=== PATIENT | female | born 1985 | race Caucasian/White ===

== ENCOUNTER → 2019-03-20 09:10 | Outpatient (CLI) | payer OTHER, SELFPAY ==
[2019-03-20 09:56] LABS: Add Manual Diff / Slide Review NO; Basophils Absolute Auto 100 /uL (0-100); Basophils Percent Auto 1.4 % (0-2); Eosinophils Absolute Auto 100 /uL (0-450); Eosinophils Percent Auto 1.5 % (2-4); Hematocrit 41.5 % (36-46); Hemoglobin 14.2 g/dL (12.0-16.0); Lymphocytes Absolute Auto 1200 /uL (1100-4500); Lymphocytes Percent Auto 27.1 % (25-40); Mean Corpuscular HGB Conc 34.2 % (30-36); Mean Corpuscular Hemoglobin 29.4 PG (26-34); Mean Corpuscular Volume 86.1 fL (80-100); Monocytes Absolute Auto 500 /uL (0-900); Monocytes Percent Auto 11.2 % (3-14); Neutrophils Absolute Auto 2700 /uL (1500-7000); Neutrophils Percent Auto 58.8 % (50-75); Platelet Count 273 X10^3/uL (150-400); Red Blood Cell Count 4.83 X10^6/uL (4.0-5.2); Red Cell Distribution Width 12.4 % (11.6-14.8); White Blood Cell Count 4.5 X10^3/uL (4.5-11.0)
[2019-03-20 10:27] LABS: Alanine Aminotransferase 33 IU/L (9-52); Albumin 4.3 g/dL (3.5-5.0); Albumin Globulin Ratio 1.3 (1.0-2.8); Alkaline Phosphatase 56 U/L (38-126); Aspartate Aminotransferase 36 IU/L (14-36); BUN Creatinine Ratio 11.7 (6-22); Bilirubin Total 0.5 mg/dL (0.2-1.3); Blood Urea Nitrogen 7 mg/dL (7-17); Calcium 9.5 mg/dL (8.4-10.2); Carbon Dioxide 29 mmol/L (22-32); Chloride 102 mmol/L (98-107); Estimated Glomerular Filt Rate > 60.0 mL/min (>60); Globulin 3.4 g/dL (1.7-4.1); Glucose 87 mg/dL (70-100); HEMOLYSIS < 15 (0-50); Potassium 4.2 mmol/L (3.4-5.1); Sodium 139 mmol/L (137-145); Total Protein 7.7 g/dL (6.3-8.2)
== END ==
PROVIDERS: PCP Family Medicine; Visit Provider Family Medicine
DX: K52.9 Noninfective gastroenteritis and colitis, unspecified (principal)
CPT/HCPCS: 36415; 80053; 85025

== ENCOUNTER → 2020-07-06 09:22 | Outpatient (CLI) | payer OTHER, SELFPAY ==
--- NOTE | 2020-07-06 09:24 | DI.RAD.S_ITS ---
PROCEDURE: XR SACRUM COCCYX MIN 2V INDICATIONS: injury TECHNIQUE: 3 views of the sacrum and coccyx acquired. COMPARISON: None. FINDINGS: Bones: No fractures or dislocations. No suspicious bony lesions. Soft tissues: Visualized bowel gas pattern is normal. No suspicious soft tissue densities. IMPRESSION: No trauma found. Dictated by: Issa Alvarado M.D. on 07/06/2020 at 11:05 Approved by: Issa Alvarado M.D. on 07/06/2020 at 11:05
== END ==
PROVIDERS: PCP Family Medicine; Referring Provider Nurse Practitioner Family; Visit Provider Nurse Practitioner Family
DX: T14.8XXA Other injury of unspecified body region, initial encounter (principal); M53.3 Sacrococcygeal disorders, not elsewhere classified; X58.XXXA Exposure to other specified factors, initial encounter
CPT/HCPCS: 72220

== ENCOUNTER 2020-08-23 14:15 | Outpatient (RCR) | payer OTHER, SELFPAY ==
--- NOTE | 2020-08-02 16:00 | PT.OTN ---
Current Diagnoses Sacrococcygeal disorders, not elsewhere classified (08/02/20) Other injury of unspecified body region, initial encounter (08/02/20) Physical Therapy Treatment Note PT-OP-A Visit Information Start: 08/02/20 07:29 Freq: Status: Active Protocol: Document 08/02/20 14:15 AMB (Rec: 08/03/20 07:59 AMB [email or web address]) Out-Patient Physical Therapy Visit Information Visit Information Visit Type Initial Evaluation Visit Start Time 14:15 Visit Stop Time 15:00 Total Visit Minutes 45 Visit Number 1 PT-OP-B Current Condition Start: 08/02/20 07:29 Freq: Status: Active Protocol: Document 08/02/20 14:15 AMB (Rec: 08/02/20 14:57 AMB [id number]) Current Condition History of Current Condition Onset Date June 14 Current Complaints Left SI pain History of Current Condition Left buttock pain s/p fall, down on stair Driving is the worst, working out (like sit ups), touched on the painful area, sitting (like to watch a movie). Had a large bruise, and still feels like the bruise is tender. Mostly concerned about that. Prior Functional Status Baseline Function- ADL's Independent Baseline Function- Mobility Independent PT-OP-C Subjective Start: 08/02/20 07:29 Freq: Status: Active Protocol: Document 08/02/20 14:15 AMB (Rec: 08/03/20 07:59 AMB [email or web address]) Patient Questionnaires Oswestry Low Back Index Oswestry Score 16 Oswestry Impairment 1 to 19% Impaired (Score 1-19) OP-PT Pain Assessment Comments Pain Comments 4/10 pain over left buttock PT-OP-F Manual Assessment Start: 08/02/20 07:29 Freq: Status: Active Protocol: Document 08/02/20 14:15 AMB (Rec: 08/03/20 08:28 AMB [email or web address]) Manual Assessments Joint Mobility Assessment Joint Mobility Assessment thigh thrust positive for reproduction of pain PT-OP-J Posture/Palpation/Skin Start: 08/02/20 07:29 Freq: Status: Active Protocol: Document 08/02/20 14:15 AMB (Rec: 08/03/20 08:28 AMB [email or web address]) Posture Evaluation Comments Posture Comments No significant pelvic assymetries PT-OP-M Strength Start: 08/02/20 07:29 Freq: Status: Active Protocol: Document 08/02/20 14:15 AMB (Rec: 08/03/20 08:28 AMB [email or web address]) Hip Strength Hip Manual Muscle Testing Right Flexion (L2) 5 Normal Extension (S1) 5 Normal Abduction 5 Normal Adduction 5 Normal Left Flexion (L2) 4+ Good+ Extension (S1) 4+ Good+ Abduction 4+ Good+ Adduction 4+ Good+ PT-OP-Q Treatments Start: 08/02/20 07:29 Freq: Status: Active Protocol: Document 08/02/20 14:15 AMB (Rec: 08/03/20 08:28 AMB [email or web address]) Manual Therapy Treatment Taping 1 Body Location L posterior hip Treatment Focus inflammation control Type of Tape Kinesio Tape PT-OP-R Modalities Start: 08/02/20 07:29 Freq: Status: Active Protocol: Document 08/02/20 14:15 AMB (Rec: 08/03/20 08:28 AMB [email or web address]) Ultrasound Therapy Treatment Left Hip Treatment Duration (minutes) 8 Patient Position Prone Coupling Medium Ultrasound Gel Frequency Setting (mHz) 1 Mode Setting Continuous Intensity Setting (w/cm2) 1.8 PT-OP-T Assessment and Plan Start: 08/02/20 07:29 Freq: Status: Active Protocol: Document 08/02/20 14:15 AMB (Rec: 08/03/20 08:28 AMB [email or web address]) Physical Therapy Assessment Rehab Potential Rehabilitation Potential Good Evaluation Complexity Number of Personal Factors/Comorbidities 0 Number of Body Systems Impaired 3 Clinical Presentation at Evaluation Stable Impairments Impairments Functional Activities, Integument,Pain Goals Two Impairment HEP Short Term Goal (STG) Rivka will be independent and consistent with a home exercise program. STG Duration 4 weeks One Impairment Pain Short Term Goal (STG) Rivka will sit for 1 hour without an increase in pain. STG Duration 4 weeks Certified Home Health Aide Goal (LTG) Rivka will be able to do any core exercieses (lying supine) that she wants without an increase in pain. LTG Duration 8 weeks Assessment Summary Assessment Rivka attends PT with improving sx, but continued pain almost 2 months s/p fall. She continues to have difficulty with sitting and generally putting pressure on her left buttocks. She did have some signs of SI dysfunction, but her strength is well maintained. She is mostly concerned about the continued bruising that is sensitive to touch. Physical therapy will focus on inflammation control and then if she is not improving appropriately will further progress SI stabilization. Physical Therapy Plan Frequency and Duration Frequency of Treatment 2x/Week Duration of Treatment 8 weeks Plan of Care Start Date 08/02/20 Plan of Care End Date 09/27/20 Therapeutic Interventions Therapeutic Interventions Home Exercise Program,Manual Therapy,Neuromuscular Re- education,Soft Tissue Mobilization,Therapeutic Activities,Therapeutic Exercises Modalities Cold Pack/Ice Massage,Electric Stimulation,Hot Packs, Ultrasound Next Visit Focus/Plan Next Note Type Treatment Note Next Visit Plan Reassess tolerance for ultrasound and kinesiotape
--- NOTE | 2020-08-02 16:00 | PT.OPPOC ---
Physical, Occupational & Speech Therapy At [facility] Current Diagnoses Sacrococcygeal disorders, not elsewhere classified (08/02/20) Other injury of unspecified body region, initial encounter (08/02/20) Visit Care Team Role Provider Type Tameka Fowler DO Family Provider Physician Primary Care Provider Specialty: [facility] Practice Address: [address] [place] [address], [place], [address] Email: [email or web address] CORY Ibarra Attending Provider Advanced Buggy Operator Referring Provider Specialty: [facility] Address: [address] [place] [address], [id number] Email: [email or web address] Plan Of Care PT-OP-T Assessment and Plan Start: 08/02/20 07:29 Freq: Status: Active Protocol: Document 08/02/20 14:15 AMB (Rec: 08/03/20 08:28 AMB [email or web address]) Physical Therapy Assessment Rehab Potential Rehabilitation Potential Good Evaluation Complexity Number of Personal Factors/Comorbidities 0 Number of Body Systems Impaired 3 Clinical Presentation at Evaluation Stable Impairments Impairments Functional Activities, Integument,Pain Goals Two Impairment HEP Short Term Goal (STG) Rivka will be independent and consistent with a home exercise program. STG Duration 4 weeks One Impairment Pain Short Term Goal (STG) Rivka will sit for 1 hour without an increase in pain. STG Duration 4 weeks Senior Care Goal (LTG) Rivka will be able to do any core exercieses (lying supine) that she wants without an increase in pain. LTG Duration 8 weeks Assessment Summary Assessment Rivka attends PT with improving sx, but continued pain almost 2 months s/p fall. She continues to have difficulty with sitting and generally putting pressure on her left buttocks. She did have some signs of SI dysfunction, but her strength is well maintained. She is mostly concerned about the continued bruising that is sensitive to touch. Physical therapy will focus on inflammation control and then if she is not improving appropriately will further progress SI stabilization. Physical Therapy Plan Frequency and Duration Frequency of Treatment 2x/Week Duration of Treatment 8 weeks Plan of Care Start Date 08/02/20 Plan of Care End Date 09/27/20 Therapeutic Interventions Therapeutic Interventions Home Exercise Program,Manual Therapy,Neuromuscular Re- education,Soft Tissue Mobilization,Therapeutic Activities,Therapeutic Exercises Modalities Cold Pack/Ice Massage,Electric Stimulation,Hot Packs, Ultrasound Next Visit Focus/Plan Next Note Type Treatment Note Next Visit Plan Reassess tolerance for ultrasound and kinesiotape Plan of Care Dates Plan of Care Start Date 08/02/20 Plan of Care End Date 09/27/20 Electronically Signed by: Malorie Mabry, PT 08/03/20 0836 Please Sign and Return: I have reviewed this Plan of Care and certify that the skilled therapy services above are required to meet the patient?s needs. Physician Signature Date Printed Name and Credentials Clinical Instructor Signature Printed Name and Credentials
--- NOTE | 2020-08-09 16:13 | PT.OTN ---
Current Diagnoses Sacrococcygeal disorders, not elsewhere classified (08/09/20) Other injury of unspecified body region, initial encounter (08/09/20) Physical Therapy Treatment Note PT-OP-A Visit Information Start: 08/02/20 07:29 Freq: Status: Active Protocol: Document 08/09/20 14:15 AMB (Rec: 08/09/20 16:13 AMB [id number]) Out-Patient Physical Therapy Visit Information Visit Information Visit Type Treatment Note Visit Start Time 14:15 Visit Stop Time 15:00 Total Visit Minutes 45 Visit Number 2 PT-OP-B Current Condition Start: 08/02/20 07:29 Freq: Status: Active Protocol: Document 08/02/20 14:15 AMB (Rec: 08/02/20 14:57 AMB [id number]) Current Condition History of Current Condition Onset Date June 14 Current Complaints Left SI pain History of Current Condition Left buttock pain s/p fall, down on stair Driving is the worst, working out (like sit ups), touched on the painful area, sitting (like to watch a movie). Had a large bruise, and still feels like the bruise is tender. Mostly concerned about that. Prior Functional Status Baseline Function- ADL's Independent Baseline Function- Mobility Independent PT-OP-C Subjective Start: 08/02/20 07:29 Freq: Status: Active Protocol: Document 08/09/20 14:15 AMB (Rec: 08/09/20 16:13 AMB [id number]) OP-PT Subjective Patient Comments Patient Comments Pt was more sore after IE for about 2 days. Does think her bruising is better. PT-OP-F Manual Assessment Start: 08/02/20 07:29 Freq: Status: Active Protocol: Document 08/02/20 14:15 AMB (Rec: 08/03/20 08:28 AMB [email or web address]) Manual Assessments Joint Mobility Assessment Joint Mobility Assessment thigh thrust positive for reproduction of pain PT-OP-J Posture/Palpation/Skin Start: 08/02/20 07:29 Freq: Status: Active Protocol: Document 08/02/20 14:15 AMB (Rec: 08/03/20 08:28 AMB [email or web address]) Posture Evaluation Comments Posture Comments No significant pelvic assymetries PT-OP-M Strength Start: 08/02/20 07:29 Freq: Status: Active Protocol: Document 08/02/20 14:15 AMB (Rec: 08/03/20 08:28 AMB [email or web address]) Hip Strength Hip Manual Muscle Testing Right Flexion (L2) 5 Normal Extension (S1) 5 Normal Abduction 5 Normal Adduction 5 Normal Left Flexion (L2) 4+ Good+ Extension (S1) 4+ Good+ Abduction 4+ Good+ Adduction 4+ Good+ PT-OP-Q Treatments Start: 08/02/20 07:29 Freq: Status: Active Protocol: Document 08/09/20 14:15 AMB (Rec: 08/09/20 16:13 AMB [id number]) Therapeutic Exercises Supine Exercises 1 Supine Exercise Name core stability for diastasis recti Sidelying Exercises 1 Sidelying Exercise Name hip abd SLR Reps/Minutes 10 Manual Therapy Treatment Taping 1 Body Location L posterior hip Treatment Focus inflammation control Type of Tape Kinesio Tape PT-OP-R Modalities Start: 08/02/20 07:29 Freq: Status: Active Protocol: Document 08/09/20 14:15 AMB (Rec: 08/09/20 16:13 AMB [id number]) Ultrasound Therapy Treatment Left Hip Treatment Duration (minutes) 8 Patient Position Prone Coupling Medium Ultrasound Gel Frequency Setting (mHz) 1 Mode Setting Continuous Intensity Setting (w/cm2) 1.8 PT-OP-T Assessment and Plan Start: 08/02/20 07:29 Freq: Status: Active Protocol: Document 08/09/20 14:15 AMB (Rec: 08/09/20 16:13 AMB [id number]) Physical Therapy Assessment Assessment Summary Assessment Explained that SI joint may be irritated as well as bruising present. Explained diastasis recti and how to improve core stability with it. Physical Therapy Plan Next Visit Focus/Plan Next Note Type Treatment Note Next Visit Plan Follow up on L sided pain/ bruising
--- NOTE | 2020-08-23 16:00 | PT.OTN ---
Current Diagnoses Sacrococcygeal disorders, not elsewhere classified (08/23/20) Other injury of unspecified body region, initial encounter (08/23/20) Physical Therapy Treatment Note PT-OP-A Visit Information Start: 08/02/20 07:29 Freq: Status: Active Protocol: Document 08/23/20 14:15 AMB (Rec: 08/23/20 16:00 AMB [id number]) Out-Patient Physical Therapy Visit Information Visit Information Visit Type Treatment Note Visit Note pt arrived late and needed to leave early Visit Start Time 14:20 Visit Stop Time 14:50 Total Visit Minutes 30 Visit Number 3 PT-OP-B Current Condition Start: 08/02/20 07:29 Freq: Status: Active Protocol: Document 08/02/20 14:15 AMB (Rec: 08/02/20 14:57 AMB [id number]) Current Condition History of Current Condition Onset Date June 14 Current Complaints Left SI pain History of Current Condition Left buttock pain s/p fall, down on stair Driving is the worst, working out (like sit ups), touched on the painful area, sitting (like to watch a movie). Had a large bruise, and still feels like the bruise is tender. Mostly concerned about that. Prior Functional Status Baseline Function- ADL's Independent Baseline Function- Mobility Independent PT-OP-C Subjective Start: 08/02/20 07:29 Freq: Status: Active Protocol: Document 08/23/20 14:15 AMB (Rec: 08/23/20 16:00 AMB [id number]) OP-PT Subjective Patient Comments Patient Comments Pt thinks she is slowly getting better. No longer aware of pain unless she is sitting, hasn't tried to do sit ups yet, as core wouldn't ashish really able to do that anyway. PT-OP-F Manual Assessment Start: 08/02/20 07:29 Freq: Status: Active Protocol: Document 08/02/20 14:15 AMB (Rec: 08/03/20 08:28 AMB [email or web address]) Manual Assessments Joint Mobility Assessment Joint Mobility Assessment thigh thrust positive for reproduction of pain PT-OP-J Posture/Palpation/Skin Start: 08/02/20 07:29 Freq: Status: Active Protocol: Document 08/02/20 14:15 AMB (Rec: 08/03/20 08:28 AMB [email or web address]) Posture Evaluation Comments Posture Comments No significant pelvic assymetries PT-OP-M Strength Start: 08/02/20 07:29 Freq: Status: Active Protocol: Document 08/02/20 14:15 AMB (Rec: 08/03/20 08:28 AMB [email or web address]) Hip Strength Hip Manual Muscle Testing Right Flexion (L2) 5 Normal Extension (S1) 5 Normal Abduction 5 Normal Adduction 5 Normal Left Flexion (L2) 4+ Good+ Extension (S1) 4+ Good+ Abduction 4+ Good+ Adduction 4+ Good+ PT-OP-Q Treatments Start: 08/02/20 07:29 Freq: Status: Active Protocol: Document 08/23/20 14:15 AMB (Rec: 08/23/20 16:00 AMB [id number]) Manual Therapy Treatment Taping 1 Body Location L posterior hip Treatment Focus inflammation control Type of Tape Kinesio Tape Comments star pattern for stabilization Manual Techniques 1 Type L LE distraction PT-OP-R Modalities Start: 08/02/20 07:29 Freq: Status: Active Protocol: Document 08/23/20 14:15 AMB (Rec: 08/23/20 16:00 AMB [id number]) Ultrasound Therapy Treatment Left Hip Treatment Duration (minutes) 8 Patient Position Prone Coupling Medium Ultrasound Gel Frequency Setting (mHz) 1 Mode Setting Continuous Intensity Setting (w/cm2) 1.8 PT-OP-T Assessment and Plan Start: 08/02/20 07:29 Freq: Status: Active Protocol: Document 08/23/20 14:15 AMB (Rec: 08/23/20 16:00 AMB [id number]) Physical Therapy Assessment Assessment Summary Assessment Continued tenderness over L buttock with palpation, slightly high at L ASIS, leg pull felt good, explained that as long as pt is improving can continue with current treatment plan, but will need to continue to assess to make sure joint isn't part of the issue, and soft tissue is improving. Physical Therapy Plan Next Visit Focus/Plan Next Note Type Treatment Note Next Visit Plan Follow up on L sided pain/ bruising
--- NOTE | 2020-09-07 13:15 | PT.OPDS ---
Current Diagnoses Sacrococcygeal disorders, not elsewhere classified (08/23/20) Other injury of unspecified body region, initial encounter (08/23/20) Visit Care Team Role Provider Type Tameka Fowlre DO Family Provider Physician Primary Care Provider Specialty: [facility] Address: [address] [place] [address], [facility] [place], [address] Email: [email or web address] CORY Ibarra Attending Provider Advanced Devil Tender Referring Provider Specialty: [facility] Address: [address] [place] [address], [address] Email: [email or web address] Visit Number Visit Number 3 Discharge Summary PT-OP-B Current Condition Start: 08/02/20 07:29 Freq: Status: Active Protocol: Document 08/02/20 14:15 AMB (Rec: 08/02/20 14:57 AMB [id number]) Current Condition History of Current Condition Onset Date June 14 Current Complaints Left SI pain History of Current Condition Left buttock pain s/p fall, down on stair Driving is the worst, working out (like sit ups), touched on the painful area, sitting (like to watch a movie). Had a large bruise, and still feels like the bruise is tender. Mostly concerned about that. Prior Functional Status Baseline Function- ADL's Independent Baseline Function- Mobility Independent PT-OP-C Subjective Start: 08/02/20 07:29 Freq: Status: Active Protocol: Document 08/23/20 14:15 AMB (Rec: 08/23/20 16:00 AMB [id number]) OP-PT Subjective Patient Comments Patient Comments Pt thinks she is slowly getting better. No longer aware of pain unless she is sitting, hasn't tried to do sit ups yet, as core wouldn't ashish really able to do that anyway. PT-OP-F Manual Assessment Start: 08/02/20 07:29 Freq: Status: Active Protocol: Document 08/02/20 14:15 AMB (Rec: 08/03/20 08:28 AMB [email or web address]) Manual Assessments Joint Mobility Assessment Joint Mobility Assessment thigh thrust positive for reproduction of pain PT-OP-J Posture/Palpation/Skin Start: 08/02/20 07:29 Freq: Status: Active Protocol: Document 08/02/20 14:15 AMB (Rec: 08/03/20 08:28 AMB [email or web address]) Posture Evaluation Comments Posture Comments No significant pelvic assymetries PT-OP-M Strength Start: 08/02/20 07:29 Freq: Status: Active Protocol: Document 08/02/20 14:15 AMB (Rec: 08/03/20 08:28 AMB [email or web address]) Hip Strength Hip Manual Muscle Testing Right Flexion (L2) 5 Normal Extension (S1) 5 Normal Abduction 5 Normal Adduction 5 Normal Left Flexion (L2) 4+ Good+ Extension (S1) 4+ Good+ Abduction 4+ Good+ Adduction 4+ Good+ PT-OP-T Assessment and Plan Start: 08/02/20 07:29 Freq: Status: Active Protocol: Document 09/07/20 13:11 AMB (Rec: 09/07/20 13:15 AMB [email or web address]) Physical Therapy Plan Discharge Physical Therapy Discharge Reasons No Longer Attending PT Discharge Comments Pt had to cancel multiple appointments due to lack of childcare. She was feeling like she was improving with physical therapy, but was only seen for 3 visits. She has not scheduled more, so she is discharged for no longer attending PT. She would be welcome to return at a time when she is able to attend regularly.
== END 2020-09-23 10:50 ==
LOC: PHYS 14:15
PROVIDERS: Family Provider Family Medicine; PCP Family Medicine; Referring Provider Nurse Practitioner Family; Visit Provider Nurse Practitioner Family
DX: T14.8XXA Other injury of unspecified body region, initial encounter (principal); M53.3 Sacrococcygeal disorders, not elsewhere classified
CPT/HCPCS: 97035; 97110; 97140; 97161

== ENCOUNTER → 2023-01-20 15:19 | Outpatient (CLI) | payer OTHER, SELFPAY ==
--- NOTE | 2023-01-20 15:22 | DI.RAD.S_ITS ---
PROCEDURE: XR ANKLE LT MIN 3V INDICATIONS: Left ankle strain TECHNIQUE: 3 views of the ankle were acquired. COMPARISON: None. FINDINGS: Bones: No fractures or dislocations. Ankle mortise is normally aligned. No suspicious bony lesions. The talar dome demonstrates no nick abnormality. Soft tissues: No tibiotalar joint effusion. Achilles tendon appears normal. IMPRESSION: Ankle plain film study within normal limits. Dictated by: Keo Shetty M.D. on 01/20/2023 at 19:05 Approved by: Keo Shetty M.D. on 01/20/2023 at 19:06
== END ==
PROVIDERS: Family Provider Family Medicine; PCP Family Medicine; Referring Provider Nurse Practitioner Family; Visit Provider Nurse Practitioner Family
DX: S96.912A Strain of unspecified muscle and tendon at ankle and foot level, left foot, initial encounter (principal); X58.XXXA Exposure to other specified factors, initial encounter
CPT/HCPCS: 73610

== ENCOUNTER → 2024-04-13 13:00 | Outpatient (CLI) | payer BC, SELFPAY | PROVIDERS: Family Provider Family Medicine; PCP Family Medicine; Visit Provider Physician Assistant Surgical | DX: J02.9 Acute pharyngitis, unspecified (principal) | CPT/HCPCS: 87070 ==